=== PATIENT | male | born 1965 | race African-American/Black ===

== ENCOUNTER 2020-06-30 15:42 | Emergency (ER) | payer OTHER ==
[~2020-06-30] VITALS: Ht 185.4 cm; Wt 99.8 kg
[~2020-06-30 15:42] MED LIST: IBUPROFEN800 MG PO; ORPH100T PO
== END 2020-06-30 19:27 | disposition home or self-care (01) ==
LOC: ER 15:42
DX: S39.012A Strain of muscle, fascia and tendon of lower back, initial encounter (principal); X50.0XXA Overexertion from strenuous movement or load, initial encounter; Y93.89 Activity, other specified; Y92.89 Other specified places as the place of occurrence of the external cause; Y99.8 Other external cause status